=== PATIENT | female | born 1955 | race Caucasian/White ===

== ENCOUNTER → 2018-10-02 | Outpatient (CLI) | payer BC ==
[~2018-10-02] MED LIST: REGADENOSON 0.4 MG/5 ML DISP.SYRIN. IV ONE
--- NOTE | 2018-10-02 14:28 | PCVCIMAG ---
APPROVED REPORT Imaging Protocol: Rest Tc-99m/Stress Tc-99m 1 day Study performed: 10/02/2018 12:00:44 Indication: Atrial Fibrillation, CAD Patient Location: Out-Patient Stress Nurse: Nadira Lopez RN, Sheron Leblanc RN [place] Tech:Kristie Clover [facility] Ht: 5 ft 7 in Wt: 225 lbs BSA: 2.13 m2 HR: 64 bpm BP: 185/87 mmHg BMI: 35.23 Rhythm: Sinus Rhythm, First degree AV Block Medical History Medical History: CHF, CAD, Former Smoker, Age, CO Medications: Eliquis, Aricept, Meloxicam, Midodrine, Paxil Allergies: Sulfa, Macrodantin Pretest Chest Pain Characteristics: No chest pain Exercise History: Sedentary Physical Disabilities: Uses a walker for weakness and multiple falls Resting Data Rest SPECT myocardial perfusion imaging was performed in supine position 45 minutes following the intravenous injection of 10.8 mCi of Tc-99m Sestamibi. Time of rest injection: Date: 10/02/2018 Administration Route: IV Administration Site: Right AC Pharmacologic Stress Pharmacologic stress test was performed by injecting Regadenoson 0.4 mg IV push over 10-15 seconds immediately followed by the intravenous injection of 30.7 mCi of Tc-99m Sestamibi. Time of stress injection: 1240 Date: 10/02/2018 Administration Route: IV Administration Site: Right AC Gated Stress SPECT was performed 45 minutes after stress injection. The images were gated to evaluate regional wall motion and calculate left ventricular ejection fraction. Stress Test Details Stress Test: Pharmacologic stress testing performed using 0.4 mg of regadenoson per 5 mL given IV over 10 seconds. Reason for pharmacologic stress test: uses a walker due to numerous falls. HRMax Heart Rate (APMHR): 156 bpm Resting HR: 64 bpmTarget HR (85% APMHR): 132 bpm Max HR Achieved: 74 bpm % of APMHR: 47 Recovery HR: 71 bpm BP Resting BP: 185/87 mmHg Max BP: 154/72 mmHg Recovery BP: 141/79 mmHg ECG Resting ECG: Sinus Rhythm, 1st degree AV block Stress ECG: Sinus Rhythm ST Change: Non-ischemic Recovery ECG: Sinus Rhythm Clinical Reason for Termination: Completed protocol Stress Symptoms: Lightheaded Exercise duration: 0 min 55 sec Symptoms resolved with caffeine. Study Quality Study: Good Study Data Post stress, the left ventricular ejection was 69%.. Perfusion There is a small area of moderately reduced uptake in the basal segment of the inferolateral wall which is seen on the stress images and normalizes on the resting images. This area thickens and moves normally and is most consistent with ischemia. Wall Motion Normal left ventricular wall motion. Nuclear Conclusion ECG Findings: negative for ischemia Clinical Findings: non-diagnostic Nuclear Findings: positive for ischemia Exercise Capacity: not assessed Left Ventricular Function: normal There is a reversible defect in the basal inferolateral segment, consistent with ischemia. There is normal global and segmental LV systolic function.
== END | disposition home or self-care (01) ==
LOC: PCVCIMAG 10:56
PROVIDERS: ATTEND Internal Medicine Cardiovascular Disease
DX: I48.91 Unspecified atrial fibrillation (principal); I25.10 Atherosclerotic heart disease of native coronary artery without angina pectoris; I50.9 Heart failure, unspecified; Z87.891 Personal history of nicotine dependence
CPT/HCPCS: 78452; 93017; A9500; J2785